=== PATIENT | female | born 1945 | race Caucasian/White ===

== ENCOUNTER 2016-12-17 19:51 | Emergency (ER) | payer MEDICARE, OTHER ==
[2016-12-17 20:04] VITALS: BP 135/77
--- NOTE | 2016-12-17 20:11 | ERNOTE ---
Trauma/Assault HPI - Narrative Date of Service: 12/17/16 - General Stated Complaint: RT LEG PAIN, LT RIB PAIN, NOSE PAIN Time Seen by Provider: 12/17/16 20:10 Source: patient Exam Limitations: no limitations - Immun/Allergies/Home Medications Immunizations: IMMUNIZATION HX Immunizations Up to Date Yes History of Influenza Vaccine No Hx Pneumococcal Vaccination Yes Allergies/Adverse Reactions: Allergies Penicillins Allergy (Verified 12/17/16 20:04) Sulfa (Sulfonamide Antibiotics) Allergy (Verified 12/17/16 20:04) Home Medications: HOME MEDICATIONS Atenolol 50 mg PO DAILY 05/19/14 [Last Taken Unknown] Furosemide [Lasix] 40 mg PO DAILY 05/19/14 [Last Taken Unknown] Ropinirole HCl 2 mg PO HS 05/19/14 [Last Taken Unknown] Sertraline HCl 50 mg PO DAILY 05/19/14 [Last Taken Unknown] Cetirizine HCl [24Hour Allergy] 10 mg PO 12/17/16 [Last Taken Unknown] - History of Present Illness Date (Duration): 12/10/16 Narrative: Presents to ER with c/o continued left sided chest wall pain and right knee pain. Claims she fell on concrete pavement at a store exactly one week today. No LOC. She was seen by her PCP and diagnosed with contusions to her nose, left rib, and right knee. Claims she was told pain would eventually subside, but today claims the knee and rib pains persist. Pt was prescribed tramadol for pain, but only filled Rx today. Took 2 tabs of hydromorphone today [employer]IVE in ED. Location Occurred: Reports: home, other - Store Pain Location: Reports: chest - Left lateral chest wall, lower extremity - Right knee Method of Injury: Reports: fall Severity: moderate Modifying Factors - (Improves): Reports: immobilization Loss of Consciousness: Reports: no loss of consciousness Associated Symptoms - Trauma: Reports: chest pain. Denies: headache, dizziness , lightheadedness, neck pain, shortness of breath, abdominal pain, nausea, vomiting, muscle spasms Review of Systems - Review of Systems Constitutional: Present: no symptoms reported EYE: Present: no symptoms reported ENT: Present: no symptoms reported Respiratory: Present: no symptoms reported Cardiology: Present: no symptoms reported Gastrointestinal/Abdominal: Present: no symptoms reported Genitourinary: Present: no symptoms reported Musculoskeletal: Present: See HPI, joint pain Skin: Present: no symptoms reported Neurological: Present: no symptoms reported Endocrine: Present: no symptoms reported Hematologic/Lymphatic: Present: no symptoms reported Psych: Present: no symptoms reported All Other Systems: All systems neg except as marked - Patient's Past Medical History Patient History - Medical: No pertinent hx Patient History - Cardiac/Respiratory: Hypertension Patient History - Cancer: No Hx of Cancer Patient History - Surgical Procedures: No surgical history Patient History - Other: None LMP (females 10-50): Menopausal - Social History Living Situations: home Psych History: No pertinent hx - Immunizations Immunizations Up to Date: Yes Hx Pneumococcal Vaccination: Yes History of Influenza Vaccine: No Physical Exam - Physical Exam General Appearance: Present: wd/wn, alert, no apparent distress, obese Eye Exam: Normal inspection: bilateral, PERRL: bilateral, EOMI: bilateral Ears, Nose, Throat: Present: normal ENT inspection, hearing grossly normal Neck: Present: normal inspection, nontender, supple, full range of motion Respiratory: Present: no respiratory distress, normal breath sounds, no accessory muscle use, lungs clear, chest tenderness - Left sided rib TTP @ level of left 5th/6th ribs Cardiovascular/Chest: Present: regular rate, rhythm, no murmur, normal peripheral pulses Back Exam: Present: normal inspection, normal range of motion, no vertebral tenderness Extremity Exam: Present: decreased range of motion - Slightly decreased ROM of right knee due to pain. , joint swelling - Mild effusion of right knee. , other - No abrasion, redness, or warmth. . Absent: joint redness ED Progress - Vital Signs Patient's Vital Signs:: I have reviewed the patient's vital signs. Vital Signs: Vital Signs 12/17/16 19:58 Pulse Rate 59 L Respiratory 16 Rate Blood Pressure 135/77 - X-Ray X-Ray #1 X-Ray: ribs - Left Interpretation: Interp. by me - No fracture noted on preliminary reading. X-Ray #2 X-Ray: knee - Right knee Interpretation: Interp. by me - No fracture; normal alignment; mild degenerative changes. - Progress/Reassessment Chief Complaint: Fall Departure Clinical Impression: Contusion of right knee Qualifiers: Encounter type: subsequent encounter Qualified Code(s): S80.01XD - Contusion of right knee, subsequent encounter Contusion of rib on left side Qualifiers: Encounter type: subsequent encounter Qualified Code(s): S20.212D - Contusion of left front wall of thorax, subsequent encounter - Departure Disposition: Home self-care Condition: Good Instructions: Contusion, [id number] Additional Instructions: Continue Tramadol as prescribed by your PCP for pain control. Referrals: Kiara Gaviria MD [Primary Care Provider] -
== END 2016-12-17 21:14 | disposition home or self-care (01) ==
LOC: ER 19:51
DX: S80.01XD Contusion of right knee, subsequent encounter (principal); S20.212D Contusion of left front wall of thorax, subsequent encounter; W18.30XD Fall on same level, unspecified, subsequent encounter

== ENCOUNTER 2017-07-03 14:54 | Emergency (ER) | payer MEDICARE, OTHER ==
[2017-07-03 15:00] VITALS: BP 146/67
--- NOTE | 2017-07-03 15:20 | ERNOTE ---
ENT HPI Presenting Symptoms: other - right ear pain Time Seen by Provider: 07/03/17 15:02 Source: patient, family Exam Limitations: no limitations - Immun/Allergies/Home Medications Immunizations: IMMUNIZATION HX Immunizations Up to Date Yes History of Influenza Vaccine Yes Hx Pneumococcal Vaccination Yes Allergies/Adverse Reactions: Allergies Allergy/AdvReac Type Severity Reaction Status Date / Time Penicillins Allergy Verified 07/03/17 15:01 Sulfa (Sulfonamide Allergy Verified 07/03/17 15:01 Antibiotics) Home Medications: HOME MEDICATIONS Atenolol 50 mg PO DAILY 05/19/14 [Last Taken Unknown] Furosemide [Lasix] 40 mg PO DAILY 05/19/14 [Last Taken Unknown] Sertraline HCl 50 mg PO DAILY 05/19/14 [Last Taken Unknown] rOPINIRole HCL [Ropinirole HCl] 2 mg PO HS 05/19/14 [Last Taken Unknown] Cetirizine HCl [24Hour Allergy] 10 mg PO DAILY 12/17/16 [Last Taken Unknown] Azithromycin [Zithromax] 250 mg PO DAILY #6 tablet 07/03/17 [Last Taken Unknown] Naproxen [Naprosyn] 500 mg PO BID #60 tablet 07/03/17 [Last Taken Unknown] Neomy Sulf/Polymyx B Sulf/Hc [Cortisporin Ophthalmic Suspension] 5 drop RIGHT EAR BID #8 ml 07/03/17 [Last Taken Unknown] - History of Present Illness Narrative: Patient presents with pain and discomfort in the right ear canal. States it hurts to yawn and chew. She rates the pain is at least moderate in intensity and achy in nature. Severity: Present: moderate ENT Location: Present: ear (R) Prearrival Treatment: Present: no prearrival treatment Modifying Factors - Improves: Reports: nothing Modifying Factors - Worsens: Reports: other - chewing Associated Symptoms - ENT: Reports: denies symptoms Review of Systems - Review of Systems Constitutional: Present: See HPI EYE: Present: no symptoms reported ENT: Present: ear pain Respiratory: Present: no symptoms reported Cardiology: Present: no symptoms reported Gastrointestinal/Abdominal: Present: no symptoms reported Genitourinary: Present: no symptoms reported Musculoskeletal: Present: no symptoms reported Skin: Present: no symptoms reported Neurological: Present: no symptoms reported Endocrine: Present: no symptoms reported Hematologic/Lymphatic: Present: no symptoms reported Psych: Present: no symptoms reported - Patient's Past Medical History Patient History - Medical: Fibromyalgia Patient History - Cardiac/Respiratory: Hypertension Patient History - Cancer: No Hx of Cancer Patient History - Surgical Procedures: No surgical history Patient History - Other: None LMP (females 10-50): Menopausal - Social History Living Situations: home Abuse History: No History of abuse Psych History: No pertinent hx Smoking Status: Never smoker Alcohol Use: none Drug Use: none - Immunizations Immunizations Up to Date: Yes Hx Pneumococcal Vaccination: Yes History of Influenza Vaccine: Yes Physical Exam - Physical Exam General Appearance: Present: wd/wn, alert, moderate distress Eye Exam: Normal inspection: bilateral, PERRL: bilateral Ears, Nose, Throat: Present: abnormal TM (R), other - patient presents with pain in the right EAM manipulating the ear Neck: Present: normal inspection, nontender Respiratory: Present: no respiratory distress, normal breath sounds, no accessory muscle use, chest nontender, lungs clear Cardiovascular/Chest: Present: regular rate, rhythm, no murmur, normal peripheral pulses Gastrointestinal/Abdominal: Present: normal bowel sounds, nontender, nondistended, soft, no organomegaly Rectal Exam: Present: deferred Back Exam: Present: normal inspection, normal range of motion Extremity Exam: Present: normal inspection, non-tender, no edema, normal range of motion Neurological Exam: Present: alert, oriented, normal mood/affect Skin Exam: Present: normal color, warm/dry Lymphatic Exam: Present: no adenopathy ED Progress - Vital Signs Patient's Vital Signs:: I have reviewed the patient's vital signs. Vital Signs: Vital Signs 07/03/17 14:54 Temperature 36.4 C L Pulse Rate 64 Respiratory 16 Rate Blood Pressure 146/67 O2 Sat by Pulse 98 Oximetry - Progress/Reassessment Chief Complaint: Earache Plan - Plan Plan: Patient does appear to have a component of right otitis media, but also appears to have small otitis externa present on the right as well. She'll be started on both antibiotics and eardrops and nonsteroidals to help with inflammation. Patient is to follow-up with her family physician in a week to 10 days. Departure Clinical Impression: Otitis media Qualifiers: Otitis media type: other nonsuppurative Chronicity: acute Laterality: right Recurrence: not specified as recurrent Qualified Code(s): H65.191 - Other acute nonsuppurative otitis media, right ear Otitis externa Qualifiers: Otitis externa type: unspecified type Chronicity: acute Laterality: right Qualified Code(s): H60.501 - Unspecified acute noninfective otitis externa, right ear - Departure Disposition: Home self-care Condition: Good Instructions: Otitis Media, Adult, [id number], Otitis Externa, [id number] Referrals: Kiara Gaviria MD [Primary Care Provider] - Prescriptions: Azithromycin [Zithromax] 250 mg PO DAILY #6 tablet Naproxen [Naprosyn] 500 mg PO BID #60 tablet Neomy Sulf/Polymyx B Sulf/Hc [Cortisporin Ophthalmic Suspension] 5 drop RIGHT EAR BID #8 ml
== END 2017-07-03 15:26 | disposition home or self-care (01) ==
LOC: ER 14:54
DX: H65.191 Other acute nonsuppurative otitis media, right ear (principal); H60.501 Unspecified acute noninfective otitis externa, right ear; M79.7 Fibromyalgia; I10 Essential (primary) hypertension